=== PATIENT | female | born 1960 | race African-American/Black ===

== ENCOUNTER 2017-08-07 00:37 | Emergency (ER) | payer MEDICAID ==
[~2017-08-07] VITALS: Ht 172.7 cm; Wt 81.6 kg
[2017-08-07] VITALS (8 sets, daily range): BP systolic 125–168; BP diastolic 63–91
[~2017-08-07 00:37] MED LIST: RISPERDAL0.25 MG ORAL; ZOLOFT25 MG ORAL
[2017-08-07] MEDS ORDERED: LOSARTAN POTASS25 MG ORAL ×2 (00:48→12:27)
[2017-08-07] MEDS ORDERED: GABAPENTIN100 MG ORAL (00:48)
--- NOTE | 2017-08-07 01:12 | Emergency Room Report ---
History of Present Illness General Chief Complaint: General Complaint Source: Patient, EMS Present Illness HPI 57-year-old female with possible psych history presenting with possible seizure/ behavioral change Patient is poor historian at this time, ANO x2 history provided mostly by EMS EMS states that has been called 911, found in living room shaking, and then became more altered than her normal. No reported history of seizures, during this episode there was no urinary incontinence, bgm normal in field Unknown detailed baseline, however per review of ER charts, patient was here in 2014 for behavioral change, it was shown that patient has had some psych history since age 13 and that her mental status has been declining over the for last 5-6 years Patient currently denying any headache, chest pain, shortness of breath, nausea vomiting, abdominal pain, blurry vision Patient noted to have slight difficulty with speech, unknown baseline Denies knowing if she had seizure or not. denies any drug use Allergies: Coded Allergies: No Known Allergies (Unverified , 03/26/15) Patient History Past Medical History: see triage record Past Surgical History: unable to obtain Pertinent Family History: unable to obtain Reviewed Nursing Documentation: PMH: Agreed, PSxH: Agreed Nursing Documentation-PMH Hx Hypertension: Yes History Of Psychiatric Problem: Yes Review of Systems All Other Systems: negative except mentioned in HPI Physical Exam Vital Signs Date Time Temp Pulse Resp B/P (MAP) Pulse Ox O2 Delivery O2 Flow Rate FiO2 08/07/17 00:43 99.0 67 15 167/98 100 Room Air Sp02 EP Interpretation: reviewed, normal General Appearance: alert, non-toxic, other - Middle aged female, with slight abnormal speech, oriented to person and time, not in distress, not in pain Head: normocephalic, atraumatic Eyes: bilateral eye normal inspection, bilateral eye PERRL, bilateral eye EOMI ENT: normal ENT inspection, normal pharynx, no angioedema, moist mucus membranes, other - No tongue wound Neck: normal inspection, full range of motion, supple, no bony tend Respiratory: normal inspection, lungs clear, normal breath sounds, no respiratory distress, no retraction, no wheezing, speaking full sentences, chest symmetrical Cardiovascular #1: normal inspection, regular rate, rhythm, no edema, normal capillary refill Cardiovascular #2: 2+ radial (R), 2+ radial (L) Gastrointestinal: normal inspection, non tender, soft, non-distended, no guarding Musculoskeletal: normal inspection, back normal, normal range of motion, non- tender Neurologic: normal inspection, alert, responsive, gastroenterologist III-XII nml as tested, motor strength/tone normal, sensory intact, normal gait, speech normal, other - No facial droop, tongue is midline was sticking out, moving all 4 extremities spontaneously, motor strength is 5 out of 5 Psychiatric: no suicidal/homicidal ideation, other - Poor historian/poor memory Skin: normal inspection, normal color, no rash, warm/dry, well hydrated, normal turgor Medical Decision Making Diagnostic Impression: Primary Impression: Behavioral change ER Course 57-year-old female with psych disturbance behavioral change, possible seizure Differential diagnosis Seizure, intracranial bleed, likely disturbance, dehydration, infectious, UTI/ pneumonia Psych Plan obtain labs, CT head EKG chest x-ray Glucose is normal ER course: Patient has been monitored during ED stay, HD stable labs, CT unremarkable pt nad at bedside, aox2, conversing appropriately, poor historian but ?likely baseline given previous charts, attempted to call family however no answer denies any SI/HI no seizures in ED Disposition: Signed out patient to Dr. Coburn 57 yo F, more altered than baseline workup negative no si/hi waiting for family to pick her up and confirm sh is at baseline mental status Please note that this Emergency Department Report was dictated using Zenringtechnical support engineer technology software, occasionally this can lead to erroneous entry secondary to interpretation by the dictation equipment. Laboratory Tests Test 08/07/17 00:59 White Blood Count 5.7 K/UL (4.8-10.8) Red Blood Count 4.60 M/UL (4.20-5.40) Hemoglobin 13.5 G/DL (12.0-16.0) Hematocrit 41.9 % (37.0-47.0) Mean Corpuscular Volume 91 FL (80-99) Mean Corpuscular Hemoglobin 29.4 PG (27.0-31.0) Mean Corpuscular Hemoglobin Concent 32.3 G/DL (32.0-36.0) Red Cell Distribution Width 13.4 % (11.6-14.8) Platelet Count 327 K/UL (150-450) Mean Platelet Volume 6.9 FL (6.5-10.1) Neutrophils (%) (Auto) 40.0 % (45.0-75.0) L Lymphocytes (%) (Auto) 51.7 % (20.0-45.0) H Monocytes (%) (Auto) 4.6 % (1.0-10.0) Eosinophils (%) (Auto) 2.5 % (0.0-3.0) Basophils (%) (Auto) 1.2 % (0.0-2.0) Sodium Level 143 mEQ/L (135-145) Potassium Level 3.7 mEQ/L (3.4-4.9) Chloride Level 103 mEQ/L (98-107) Carbon Dioxide Level 28 mEQ/L (20-30) Anion Gap 12 (5-15) Blood Urea Nitrogen 12 mg/dL (7-23) Creatinine 0.9 mg/dL (0.5-0.9) Estimate Glomerular Filtration Rate > 60 mL/min (>60) Glucose Level 109 mg/dL (74-106) H Calcium Level 9.8 mg/dL (8.6-10.2) Total Bilirubin 0.4 mg/dL (0.0-1.2) Aspartate Amino Transferase (AST) 15 U/L (5-40) Alanine Aminotransferase (ALT) 19 U/L (3-33) Alkaline Phosphatase 126 U/L (35-104) H Troponin I < 0.30 ng/mL (<=0.30) Total Protein 7.7 g/dL (6.6-8.7) Albumin 4.1 g/dL (3.5-5.2) Globulin 3.6 g/dL Albumin/Globulin Ratio 1.1 (1.0-2.7) Salicylates Level < 1 mg/dL (10-30) L Acetaminophen Level < 10 ug/mL (10-30) L Serum Alcohol < 10 mg/dL EKG Diagnostic Results Rate: normal ST Segments: other - LBBB, no sgarbossa criteria fulfilled ASA given to the pt in ED: No Rhythm Strip Diag. Results EP Interpretation: yes Rate: 65 Rhythm: NSR, no PVC's, no ectopy Chest X-Ray Diagnostic Results Chest X-Ray Diagnostic Results : Chest X-Ray Ordered: Yes # of Views/Limited/Complete: 1 View Indication: Other EP Interpretation: Yes Interpretation: no consolidation, no effusion, no pneumothorax, no acute cardiopulmonary disease Impression: No acute disease Electronically Signed by: Electronically signed by Mattie Haskins MD CT/MRI/US Diagnostic Results CT/MRI/US Diagnostic Results : Imaging Test Ordered: CT head Impression No acute intracranial hemorrhage. No CT evidence of acute infarct. No mass effect or midline shift. Chronic multifocal infarcts. Ex vacuo dilatation of ventricles. Hyperostosis frontalis interna. Electronically signed by Mattie Haskins MD Last Vital Signs Date Time Temp Pulse Resp B/P (MAP) Pulse Ox O2 Delivery O2 Flow Rate FiO2 08/07/17 00:43 99.0 67 15 167/98 100 Room Air Disposition: HOME, SELF-CARE Condition: Improved Scripts Losartan Potassium* (LOSARTAN POTASSIUM*) 25 Mg Tablet 25 MG ORAL DAILY, #30 TAB Prov: Ramon Coburn 08/07/17 Risperidone* (RISPERDAL*) 2 Mg Tablet 2 MG ORAL DAILY, #30 TAB 0 Refills Prov: Ramon Coburn 08/07/17 Cephalexin* (KEFLEX*) 500 Mg Capsule 500 MG ORAL EVERY 6 HOURS, #28 CAP 0 Refills Prov: Ramon Coburn 08/07/17 Referrals: [facility],REFERRING (PCP) Mattie Haskins M.D. Aug 07, 2017 01:12
[2017-08-07 01:20] LABS: BASOPHILS % (AUTO) 1.2 % (0.0-2.0); EOSINOPHILS % (AUTO) 2.5 % (0.0-3.0); LYMPHOCYTES % (AUTO) 51.7 % (20.0-45.0); MEAN CORPUSCULAR HEMOGLOBIN 29.4 PG (27.0-31.0); MEAN CORPUSCULAR HGB CONC 32.3 G/DL (32.0-36.0); MEAN CORPUSCULAR VOLUME 91 FL (80-99); MEAN PLATELET VOLUME 6.9 FL (6.5-10.1); MONOCYTES % (AUTO) 4.6 % (1.0-10.0); PLATELET COUNT 327 K/UL (150-450); RED CELL DISTRIBUTION WIDTH 13.4 % (11.6-14.8); WHITE BLOOD COUNT 5.7 K/UL (4.8-10.8)
[2017-08-07 01:27] LABS: ACETAMINOPHEN < 10 ug/mL (10-30); ALANINE AMINOTRANSFERASE 19 U/L (3-33); ALBUMIN/GLOBULIN RATIO 1.1 (1.0-2.7); ALCOHOL < 10 mg/dL; ANION GAP 12 (5-15); ASPARTATE AMINO TRANSFERASE 15 U/L (5-40); CALCIUM 9.8 mg/dL (8.6-10.2); CARBON DIOXIDE 28 mEQ/L (20-30); CHLORIDE 103 mEQ/L (98-107); CREATININE 0.9 mg/dL (0.5-0.9); GLOMERULAR FILTRATION RATE > 60 mL/min (>60); HEMOLYSIS 3; POTASSIUM 3.7 mEQ/L (3.4-4.9); SODIUM 143 mEQ/L (135-145); TOTAL PROTEIN 7.7 g/dL (6.6-8.7); TROPONIN I < 0.30 ng/mL (<=0.30)
[2017-08-07 06:13] LABS: APPEARANCE,URINE CLOUDY; KETONES,URINE NEGATIVE (NEGATIVE); LEUKOCYTE ESTERASE ,URINE 3+ (NEGATIVE); NITRITE,URINE POSITIVE (NEGATIVE); PH,URINE 7 (4.5-8.0); PROTEIN,URINE 3+ (NEGATIVE); UROBILINOGEN,URINE 1 MG/DL (0.0-1.0)
[2017-08-07 06:46] LABS: BACTERIA,URINE MANY /HPF; SQUAMOUS EPITHELIAL CELL,UR FEW /LPF (NONE/OCC); WBC,URINE TNTC /HPF (0 - 2)
[2017-08-07] MEDS ORDERED: KEFLEX500 MG ORAL (06:59)
[2017-08-07] MEDS ORDERED: cefTRIAXone 2 GM in NS 110 ML IVPB ONE (07:00)
--- NOTE | 2017-08-07 09:45 | Diagnostic Imaging Report ---
Indications: Altered mental status Technique: Spiral acquisitions obtained through the brain. Angled axial and coronal 5 x 5 mm slices were reconstructed. Total dose length product 1467 mGycm. CTDI vol(s) 70 mGy. Dose reduction achieved using automated exposure control Comparison: 02/29/2012 Findings: Again demonstrated is encephalomalacia of the right temporal lobe, extending slightly into the occipital lobe. This results and extra-axial dilatation of the temporal and atrium of the right lateral ventricle. Again demonstrated is a sizable lacunar infarct in the region of left caudate head and inferior lentiform nucleus and armas radiata, resulting index vacuo dilatation of the frontal horn of the left lateral ventricle. No acute hemorrhage or edema. No mass effect or midline shift. There is generalized age-related enlargement of ventricles and extra-axial CSF spaces. More focal areas of sulcal dilatation in the convexities bilaterally may represent old cortical infarcts. Otherwise normal fernández-white differentiation there is calvarial hyperostosis. Visualized orbits and sinuses are unremarkable. Impression: Cyst chronic and age-related changes, as described. Old infarcts as described. Negative for acute intracranial bleed or mass effect This agrees with the preliminary interpretation provided overnight by [facility] telerad[facility] service. The CT scanner at [facility] is accredited by the [employer] and the scans are performed using protocols designed to limit radiation exposure to as low as reasonably achievable to attain images of sufficient resolution adequate for diagnostic evaluation.
--- NOTE | 2017-08-07 11:35 | Diagnostic Imaging Report ---
Indication: Altered mental status Technique: One view of the chest Comparison: none Findings: Lungs and pleural spaces are clear. Heart size is normal. Impression: No acute process This agrees with the preliminary interpretation provided by the emergency room physician
[2017-08-07] MEDS ORDERED: RISPERDAL2 MG ORAL (12:23)
--- NOTE | 2017-08-07 16:28 | Cardiology Report ---
APPROVED REPORT EKG Measurement Heart [id number] Normal sinus rhythm Left bundle branch block Abnormal ECG
== END 2017-08-07 12:25 | disposition home or self-care (01) ==
LOC: EDBD 00:37 → EMR 00:53
DX: R46.89 Other symptoms and signs involving appearance and behavior (principal); Z86.59 Personal history of other mental and behavioral disorders; I10 Essential (primary) hypertension
CPT/HCPCS: 36415; 70450; 71010; 80053; 80300; 80329; 81003; 81025; 84484; 85025; 87086; 87181; 93005; 96365; 99284; J0696

== ENCOUNTER 2018-06-01 21:00 | Emergency (ER) | payer MEDICAID ==
[~2018-06-01] VITALS: Ht 170.2 cm; Wt 77.1 kg
[~2018-06-01 21:00] MED LIST changes: +GABAPENTIN100 MG ORAL; +KEFLEX500 MG ORAL; +LOSARTAN POTASS25 MG ORAL; +RISPERDAL2 MG ORAL
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
[2018-06-01] MEDS ORDERED: Neosporin Oint Ud Pkt TOP ONE (21:15)
[2018-06-01] MEDS ORDERED: Norco 5mg/325mg tab PO ONE (21:15)
[2018-06-01 21:45] VITALS: BP 158/75
[2018-06-01] MEDS ORDERED: Hydrocortisone 1% Cr 15gm TOPIC ONE (21:45)
[2018-06-01] MEDS ORDERED: TRAMADOL HCL50 MG ORAL (23:45)
[2018-06-01] MEDS ORDERED: IBUPROFEN600 MG ORAL (23:45)
[2018-06-01] MEDS ORDERED: BACITRACIN15 GM TOPIC (23:45)
[2018-06-02] VITALS: BP 158/75
[2018-06-02] MEDS ORDERED: BACK STABILIZE1 EACH MC (01:59)
--- NOTE | 2018-06-02 09:28 | Diagnostic Imaging Report ---
Indications: Trauma, pain Technique: Spiral images obtained through the facial bones. No IV contrast utilized. Multiplanar reconstructions were generated.Total dose length product 1903 mGycm. CTDIvol(s) 70, 28 mGy. Dose reduction achieved using automated exposure control Comparison: none Findings: There is a slight fracture deformity of the nasal bone, predominantly on the left. There is a slight fracture deformity of the central nasal septum, age indeterminate.. Nasal spine of the maxilla is intact. No worrisome sinus air-fluid levels. No other fractures. The optic globes and retroseptal orbits are intact. The facial soft tissues are unremarkable. There is evidence of multiple dental caries. There is evidence of a small apical root abscess of the first left maxillary incisor Impression: Positive for minimally depressed nasal fracture. Age-indeterminate nasal septal fracture. No other acute bony trauma Dental disease, as described This agrees with the preliminary interpretation provided overnight by [facility] telerad[facility] service. The CT scanner at [facility] is accredited by the [employer] and the scans are performed using protocols designed to limit radiation exposure to as low as reasonably achievable to attain images of sufficient resolution adequate for diagnostic evaluation.
--- NOTE | 2018-06-02 09:31 | Diagnostic Imaging Report ---
Indications: Trauma Technique: Spiral acquisitions obtained through the brain. Angled axial and coronal 5 x 5 mm slices were reconstructed. Total dose length product 1903.38 mGycm. CTDI vol(s) 70.38,28.19 mGy. Dose reduction achieved using automated exposure control Comparison: 08/07/2017 Findings: Sizable old left basal ganglial lacunar infarct again demonstrated, resulting ex vacuo dilatation of the frontal horn of the left lateral ventricle. There is encephalomalacia of the right posterior temporal lobe, with resultant ex vacuo dilatation of the atrium of the right lateral ventricle. There is age-related enlargement of the ventricles and extra axial CSF spaces. There is periventricular deep white matter low-attenuation. No acute intracranial hemorrhage or edema, mass effect or midline shift. There is fairly extensive calvarial hyperostosis. Otherwise normal fernández-white differentiation. No significant interim change. There is a nasal fracture deformity Impression: Chronic and age-related changes, as described Multiple old infarcts, as described Nasal fracture deformity-please refer to separate maxillofacial CT report Negative for acute intracranial bleed or mass effect This agrees with the preliminary interpretation provided overnight by [facility] service. The CT scanner at [facility] is accredited by the [employer] and the scans are performed using protocols designed to limit radiation exposure to as low as reasonably achievable to attain images of sufficient resolution adequate for diagnostic evaluation.
== END 2018-06-02 | disposition home or self-care (01) ==
LOC: EDBD 21:00 → EMR 21:10
DX: S02.2XXA Fracture of nasal bones, initial encounter for closed fracture (principal); I69.854 Hemiplegia and hemiparesis following other cerebrovascular disease affecting left non-dominant side; I10 Essential (primary) hypertension; Z88.0 Allergy status to penicillin; M06.9 Rheumatoid arthritis, unspecified; Z79.82 Long term (current) use of aspirin; Z79.02 Long term (current) use of antithrombotics/antiplatelets; Y04.2XXA Assault by strike against or bumped into by another person, initial encounter
CPT/HCPCS: 70450; 70486; 99284

== ENCOUNTER 2018-06-10 11:41 | Emergency (ER) | payer MEDICAID ==
[~2018-06-10] VITALS: Ht 170.2 cm; Wt 99.8 kg
[~2018-06-10 11:41] MED LIST changes: +BACITRACIN15 GM TOPIC; +BACK STABILIZE1 EACH MC; +IBUPROFEN600 MG ORAL; +TRAMADOL HCL50 MG ORAL
[2018-06-10 11:59] VITALS: BP 155/81
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
[2018-06-10] MEDS ORDERED: Norco 5mg/325mg tab ORAL ONE (12:45)
[2018-06-10 12:47] VITALS: BP 142/79
== END 2018-06-10 12:48 | disposition home or self-care (01) ==
LOC: EMR 12:20
DX: R51 Headache (principal); I10 Essential (primary) hypertension; Z88.0 Allergy status to penicillin; I69.354 Hemiplegia and hemiparesis following cerebral infarction affecting left non-dominant side
CPT/HCPCS: 99282

== ENCOUNTER 2018-11-08 11:27 | Emergency (ER) | payer MEDICAID ==
[~2018-11-08] VITALS: Ht 172.7 cm; Wt 86.2 kg
[2018-11-08 11:44] VITALS: BP 129/66
[2018-11-08] MEDS: Sodium Chloride 500ML 500 ML IV ONE (11:44)
--- NOTE | 2018-11-08 12:11 | Diagnostic Imaging Report ---
EXAM: XR Chest, 1 View CLINICAL HISTORY: Chest pain TECHNIQUE: Frontal view of the chest. COMPARISON: Chest x-rays dated 08/07/17 FINDINGS: Lungs: Unremarkable. The lungs appear clear. No confluent pulmonary opacities. Pleural space: Unremarkable. The costophrenic angles are sharp. No visible pneumothorax. Heart: Unremarkable. No cardiomegaly. Mediastinum: Unremarkable. Bones/joints: Unremarkable. Tubes, lines and devices: EKG leads overlie the thorax. IMPRESSION: No acute findings.
[2018-11-08 12:53] LABS: BASOPHILS % (AUTO) 0.9 % (0.0-2.0); EOSINOPHILS % (AUTO) 1.6 % (0.0-3.0); HEMATOCRIT 39.4 % (37.0-47.0); HEMOGLOBIN 12.6 G/DL (12.0-16.0); LYMPHOCYTES % (AUTO) 34.5 % (20.0-45.0); MEAN CORPUSCULAR VOLUME 93 FL (80-99); MONOCYTES % (AUTO) 4.2 % (1.0-10.0); NEUTROPHILS % (AUTO) 58.8 % (45.0-75.0); PLATELET COUNT 275 K/UL (150-450); RED BLOOD COUNT 4.25 M/UL (4.20-5.40); RED CELL DISTRIBUTION WIDTH 13.3 % (11.6-14.8); WHITE BLOOD COUNT 6.1 K/UL (4.8-10.8)
--- NOTE | 2018-11-08 12:58 | Emergency Room Report ---
History of Present Illness General Chief Complaint: Syncope Source: Patient, EMS Present Illness HPI Patient presents by paramedics for reports of syncopal episode Patient herself cannot provide any history Has had a fairly recent CVA affecting her speech Paramedics report the patient was walking when she became acutely weak Was helped onto the ground Patient here cannot provide specific history cannot recall what happened earlier There was no reports of vomiting or diarrhea No change in the patient's mental status History of present illness however stays very limited Allergies: Coded Allergies: PENICILLINS (Unverified Allergy, Unknown, 06/01/18) Patient History Limited by: medical condition Past Medical History: see triage record Pertinent Family History: unable to obtain Reviewed Nursing Documentation: PMH: Agreed; PSxH: Agreed Nursing Documentation-PMH Past Medical History: No History, Except For Hx Cardiac Problems: Yes - Stroke, speech deficit Hx Hypertension: Yes Hx Cerebrovascular Accident: Yes Review of Systems All Other Systems: limited - Other than the ones mentioned in the history of present illness all others are reviewed however they do stay limited due to the patient's mental status Physical Exam Vital Signs Date Time Temp Pulse Resp B/P (MAP) Pulse Ox O2 Delivery O2 Flow Rate FiO2 11/08/18 11:19 97.9 65 18 139/81 97 Room Air Sp02 EP Interpretation: reviewed, normal General Appearance: no apparent distress Head: normocephalic Eyes: bilateral eye PERRL ENT: normal pharynx, no angioedema Neck: supple Respiratory: lungs clear, normal breath sounds, no respiratory distress, no retraction Cardiovascular #1: regular rate, rhythm Gastrointestinal: non tender, soft Musculoskeletal: other - Patient has recent CVA upper extremity weakness Neurologic: responsive - 2 physical stimuli Skin: normal color, no rash Lymphatic: no adenopathy Medical Decision Making Diagnostic Impression: Primary Impression: Syncope ER Course Patient is a fairly complex patient with multiple differential to consideration including but not limited to cardiac cardiopulmonary and vascular emergencies Patient's blood work thus far as normal Patient remains hemodynamic stable CT imaging of the brain has not been performed as there was no change in mentation In the patient will require transfer secondary to insurance purposes Labs Test 11/08/18 11:35 White Blood Count 6.1 K/UL (4.8-10.8) Red Blood Count 4.25 M/UL (4.20-5.40) Hemoglobin 12.6 G/DL (12.0-16.0) Hematocrit 39.4 % (37.0-47.0) Mean Corpuscular Volume 93 FL (80-99) Mean Corpuscular Hemoglobin 29.6 PG (27.0-31.0) Mean Corpuscular Hemoglobin Concent 31.9 G/DL (32.0-36.0) Red Cell Distribution Width 13.3 % (11.6-14.8) Platelet Count 275 K/UL (150-450) Mean Platelet Volume 6.5 FL (6.5-10.1) Neutrophils (%) (Auto) 58.8 % (45.0-75.0) Lymphocytes (%) (Auto) 34.5 % (20.0-45.0) Monocytes (%) (Auto) 4.2 % (1.0-10.0) Eosinophils (%) (Auto) 1.6 % (0.0-3.0) Basophils (%) (Auto) 0.9 % (0.0-2.0) Sodium Level 142 MMOL/L (136-145) Potassium Level 3.8 MMOL/L (3.5-5.1) Chloride Level 106 MMOL/L (98-107) Carbon Dioxide Level 26 MMOL/L (21-32) Anion Gap 10 mmol/L (5-15) Blood Urea Nitrogen 17 mg/dL (7-18) Creatinine 0.8 MG/DL (0.55-1.30) Estimat Glomerular Filtration Rate > 60 mL/min (>60) Glucose Level 111 MG/DL (74-106) Calcium Level 9.9 MG/DL (8.5-10.1) Total Bilirubin 0.5 MG/DL (0.2-1.0) Aspartate Amino Transf (AST/SGOT) 16 U/L (15-37) Alanine Aminotransferase (ALT/SGPT) 17 U/L (12-78) Alkaline Phosphatase 114 U/L (46-116) Total Creatine Kinase 45 U/L (26-308) Creatine Kinase MB < 0.5 NG/ML (0.0-3.6) Creatine Kinase MB Relative Index 1.1 Troponin I 0.000 ng/mL (0.000-0.056) Total Protein 7.8 G/DL (6.4-8.2) Albumin 3.5 G/DL (3.4-5.0) Globulin 4.3 g/dL Albumin/Globulin Ratio 0.8 (1.0-2.7) Lipase 180 U/L (73-393) EKG Diagnostic Results Rate: normal Rhythm: NSR ST Segments: other - LBBB Rhythm Strip Diag. Results EP Interpretation: yes Rate: 60 Rhythm: NSR, no PVC's, no ectopy Chest X-Ray Diagnostic Results Chest X-Ray Diagnostic Results : Chest X-Ray Ordered: Yes # of Views/Limited/Complete: 1 View Indication: Chest Pain EP Interpretation: Yes Interpretation: no consolidation, no effusion, no pneumothorax Impression: No acute disease Electronically Signed by: Berhane Sol DO Last Vital Signs Date Time Temp Pulse Resp B/P (MAP) Pulse Ox O2 Delivery O2 Flow Rate FiO2 11/08/18 11:44 97.9 67 13 129/66 100 Room Air Status: improved Disposition: [facility]FER [facility] Condition: Improved Referrals: NON PHYSICIAN (PCP) Berhane Sol DO Nov 08, 2018 12:58
[2018-11-08 12:59] LABS: ANION GAP 10 mmol/L (5-15); BLOOD UREA NITROGEN 17 mg/dL (7-18); CALCIUM 9.9 MG/DL (8.5-10.1); CARBON DIOXIDE 26 MMOL/L (21-32); CHLORIDE 106 MMOL/L (98-107); CREATININE 0.8 MG/DL (0.55-1.30); POTASSIUM 3.8 MMOL/L (3.5-5.1); SODIUM 142 MMOL/L (136-145)
[2018-11-08 13:13] LABS: ALANINE AMINOTRANSFERASE 17 U/L (12-78); ALBUMIN 3.5 G/DL (3.4-5.0); ALBUMIN/GLOBULIN RATIO 0.8 (1.0-2.7); ALKALINE PHOSPHATASE 114 U/L (46-116); ASPARTATE AMINO TRANSFERASE 16 U/L (15-37); BILIRUBIN,TOTAL 0.5 MG/DL (0.2-1.0); CKMB < 0.5 NG/ML (0.0-3.6); CREATINE KINASE 45 U/L (26-308)
[2018-11-08 13:36] VITALS: BP 147/69
[2018-11-08 14:35] VITALS: BP 143/80
[2018-11-08 15:12] VITALS: BP 138/65
[2018-11-08] MEDS ORDERED: LISINOPRIL5 MG ORAL (15:18)
--- NOTE | 2018-11-09 14:11 | Cardiology Report ---
APPROVED REPORT EKG Measurement Heart [id number] Sinus bradycardia Possible Left atrial enlargement Left bundle branch block Abnormal ECG
== END 2018-11-08 15:18 | disposition short-term general hospital (02) ==
LOC: EDBD 11:27 → EMR 12:01
DX: R55 Syncope and collapse (principal); R07.9 Chest pain, unspecified; I10 Essential (primary) hypertension; I69.828 Other speech and language deficits following other cerebrovascular disease; Z88.0 Allergy status to penicillin
CPT/HCPCS: 36415; 71045; 80053; 82550; 82553; 83690; 84484; 85025; 93005; 99285